=== PATIENT | male | born 2005 | race Two or more races ===

== ENCOUNTER 2024-07-09 17:08 | Emergency (ER) | payer MEDICAID, SELFPAY ==
[2024-07-09 17:09] VITALS: BMI 32.5
[2024-07-09 17:28] VITALS: BP 157/92; PULSE 108; RESP 18; TEMP 37.1; O2SAT 99
--- NOTE | 2024-07-09 17:44 | XR_ITS ---
Examination: CT chest with intravenous contrast CT abdomen with intravenous contrast CT pelvis with intravenous contrast 2-D coronal and sagittal reconstructions Time of exam: July 09, 2024 at 1922 hrs. Indications: Abdominal pain chest pain nausea vomiting beginning 3 days ago CTDI: vol (mGy) : 10.8 DLP: (mGycm): 901 Technique: Multiple axial images of the chest, abdomen and pelvis with intravenous contrast, 3.0 mm slice thickness. Images obtained post intravenous injection Isovue 370 60 cc. 2-D sagittal and coronal reconstructions. Low dose protocols were performed. One or more of the following dose reduction techniques were used; automated exposure control, adjustment of the mA and/or KV according to patient size, use of iterative reconstruction technique. Findings: Normal thoracic aorta pulmonary arteries No paratracheal tracheobronchial or bronchopulmonary adenopathy No pneumonia or pulmonary edema or pleural disease No visualized liver or splenic lesion Contracted gallbladder No pancreatic or adrenal mass Mild bilateral hydronephrosis which may relate to the patient's distended urinary bladder No pericecal inflammatory change Normal appendix Fluid distended small bowel loops Small fat-containing hernia Minimal urinary bladder wall thickening No prostatomegaly Impression: No pneumonia or pulmonary edema or pleural disease Small bowel mildly fluid distended loops, consider enteritis including gastroenteritis, ileus, clinical correlation advised Normal appendix No bowel obstruction Mild bilateral hydronephrosis which appears to be secondary to distended urinary bladder Minimal bladder wall thickening, consider cystitis
--- NOTE | 2024-07-09 17:45 | EDNOTE_ITS ---
ED Abdominal Pain RME/HPI General Chief Complaint: Abdominal Pain Stated complaint: Abdominal pain, NV x 1 day Time seen by provider: 07/09/24 17:15 Arrival date/time: 07/09/24 17:08 RME / HPI RME / HPI narrative: 18-year-old male patient with significant history of diabetes insipidus, hypothyroidism, was brought in by family for evaluation regarding nausea and vomiting. Patient has been having nausea and vomiting since yesterday, no nbloody, associated with lower abdominal pain. No fever was noted. Denies any ill contacts. Family is worried because other sibling in the past is having the same symptoms and turned out to have appendicitis. Related Data Allergies Allergy/AdvReac Type Severity Reaction Status Date / Time No Known Allergies Allergy Verified 07/09/24 20:47 Review of Systems Review of Systems Narrative Review of Systems: Review of system reviewed and within normal limits except mentioned in HPI ED Exam Narrative Physical exam: VITAL SIGNS: Reviewed. GENERAL APPEARANCE: Alert and interactive, follows commands, no acute distress, HEAD AND FACE: Non-traumatic. ENT: PERRL, pink conjunctivitis, eyelid no trauma, Mucous membrane moist. NECK: Supple, nontender, no nuchal rigidity. CHEST: No tenderness, no crepitus, no paradoxical movement, no retractions. LUNGS: Clear, well ventilated, symmetric, no rales, no wheezing, no ronchi, no stridor, good breath sounds bilaterally. HEART: Regular rate, regular rhythm, no murmur, no gallops. ABDOMEN: Soft, positive bowel sounds, nondistended, no guarding, lower abdominal tenderness, no rebound, no masses, RECTAL: Deferred. GENITAL: Deferred. NEUROLOGICAL: Gross motor function intact sensory function intact, Appropriate for age. MUSCULOSKELETAL: low back nontender, full range of motion. EXTREMITIES: Nontender, full range of motion. SKIN: Color pink, dry, no rash, no lacerations, no abrasions, no contusions. LYMPHATICS: Deferred. Course Quality Measures none Orders Category Date Time Status CT Screening NOW Care 07/09/24 17:[address] chest abdomen pelvis w Stat Exams 07/09/24 17:44 Completed CBC Stat Lab 07/09/24 18:04 Completed Comprehensive Metabolic Panel Stat Lab 07/09/24 18:04 Completed Lipase Stat Lab 07/09/24 18:04 Completed Prothrombin Time with INR Stat Lab 07/09/24 18:22 Completed UA, C/S IF [Urinalysis, C/S if Indicated] Stat Lab 07/09/24 19:11 Completed Sodium Chloride 0.9% 1000 ml [Ns] 1,000 ml Med 07/09/24 17:44 Discontinued IV 999 mls/hr Vital Signs Vital signs: Vital Signs Temperature 98.7 F 07/09/24 17:28 Pulse Rate 108 H 07/09/24 17:28 Respiratory Rate 18 07/09/24 17:28 Blood Pressure 157/92 H 07/09/24 17:28 Pulse Oximetry (%) 99 07/09/24 17:28 Oxygen Delivery Method Room Air 07/09/24 17:28 Abdominal Pain [facility] Narrative [facility] Narrative:: 18-year-old male patient with significant history of diabetes insipidus, hypothyroidism, was brought in by family for evaluation regarding nausea and vomiting. Patient has been having nausea and vomiting since yesterday, nonbloody, associated with lower abdominal pain. No fever was noted. Denies any ill contacts. Family is worried because other sibling in the past is having the same symptoms and turned out to have appendicitis. Patient's workup today all came back unremarkable no leukocytosis noted. Except for chloride of 113. AST of 106, ALT of 180, and alkaline phos of 196. Urinalysis no UTI. CT scan of the abdomen and pelvis showed No pneumonia or pulmonary edema or pleural disease Small bowel mildly fluid distended loops, consider enteritis including gastroenteritis, ileus, clinical correlation advised Normal appendix No bowel obstruction Mild bilateral hydronephrosis which appears to be secondary to distended urinary bladder Minimal bladder wall thickening, consider cystitis Results discussed with the patient. And family No vomiting or diarrhea noted in the emergency room. Patient received IV fluids Patient data External records reviewed:: None Clinical information provided by:: patient and family Social determinants that could affect healthcare access:: none Patient has the following chronic illnesses:: Diabetes insipidus, hypothyroidism,, hypogonadism How is presenting disease/condition affected by chronic disease/condition?: exacerbated by Evaluation data The following diagnostics were reviewed and interpreted by me:: lab results and radiology exam(s) Lab and/or radiology exams considered but not ordered:: None Interpretation Summary: See results in MDM Medications / Prescriptions Medications or Prescriptions considered but not ordered:: None Medication administrations:: Medication Administration History Discontinued Medications Sodium Chloride (Ns) 1,000 mls @ 999 mls/hr IV .Q1H1M ONE Stop: 07/09/24 18:44 Last Infusion: 07/09/24 19:24 Dose: Infused Documented By: Admin: 07/09/24 18:27 Dose: 999 mls/hr Documented By: KUSH IV fluid for hydration Consultations Consultation(s) initiated? (list below): No Diagnosis Differential diagnosis abdominal pain: abdominal pain, acute appendicitis and other (Gastroenteritis) Most likely diagnosis given after review of the tests above:: Gastroenteritis Admission Indicated Admission indicated?: not indicated Explain why admission is indicated or not indicated:: Stable Admission Request Was there a request for admission?: No Disposition Plan Disposition Plan: Discharge Discharge Attestation Discharge Attestation: The patient and all family members were given an opportunity to ask questions and understood the discharge instructions. Discharge instructions specifically effects, indications for sooner follow up or return to the emergency department, and the expected course of current diagnosis. Patient condition: Stable Discharge Plan Plan Patient Disposition: HOME (Self Care) Disposition Comment: Stable Prescriptions/Referrals Referrals: No Primary/Family,Physician [Primary Care Provider] - In 1 week Problem List Clinical Impression: Gastroenteritis Patient/Caregiver Discharge Instructions Discharge Activity: activity as tolerated Education Materials: How the Colon Works Additional Instructions: Thank you for the opportunity for serving you today. You are stable for discharged . You are advised to: Follow-up with your PCP in 1 to 2 days Return to ED for worsening of symptoms Increase oral fluids Print Language: Yakut Stand Alone Forms: Fiona Award Info., Patient Portal Info Letter JARRETT/HERMAN Supervising Physician JOSE Supervising Physician: MD Misty
[2024-07-09] MEDS: SODIUM CHLORIDE 0.9% 1000 ML 1,000 ML 999 ML IV (18:27)
[2024-07-09 18:50] LABS: Basophils % (Auto) 0 % (0-2.5); Eosinophils # (Auto) 0.1 Thou/mm3 (0.0-0.5); Eosinophils % (Auto) 2 % (0-10); Hematocrit 42.7 % (41.0-53.0); Hemoglobin 15.3 g/dL (13.5-16.0); Immature Granulocytes % (Auto) 0 % (0-0); Immature Granulocytes Auto 0.01 Thou/mm3 (0.00-0.00); Lymphocytes # (Auto) 1.6 Thou/mm3 (1.0-5.0); Lymphocytes % (Auto) 27 % (10-50); Mean Corpuscular HGB Conc 35.8 g/dl (31.0-37.0); Mean Corpuscular Hemoglobin 27.5 pg (25.0-35.0); Mean Corpuscular Volume 77 fL (80-100); Monocytes # (Auto) 0.4 Thou/mm3 (0.0-0.8); Monocytes % (Auto) 7 % (0-12); Neutrophils # (Auto) 3.7 Thou/mm3 (1.8-7.7); Neutrophils % (Auto) 64 % (37-80); Nucleated Red Blood Cell % 0 /100 WBC (0); Platelet Count 101 Thou/mm3 (140-440); RDW Standard Deviation 38.5 fL (35.1-43.9); Red Blood Count 5.56 Miln/mm3 (4.50-5.90); White Blood Count 5.8 Thou/mm3 (4.5-11.0)
[2024-07-09 18:54] LABS: Alanine Aminotransferase 180 U/L (10-49); Albumin, Serum 4.8 gm/dL (3.5-5.0); Albumin/Globulin Ratio 1.8 (1.2-2.2); Alkaline Phosphatase 196 U/L (46-116); Anion Gap 10 (7-16); Aspartate Amino Transferase 106 U/L (0-34); BUN/Creatinine Ratio 14 Ratio (12-20); Bilirubin,Total 0.3 mg/dL (0.3-1.2); Blood Urea Nitrogen 10 mg/dL (9-23); Calcium 9.9 mg/dL (8.3-10.6); Calcium (Corrected) 9.9 mg/dL (8.5-10.1); Carbon Dioxide 21.8 mMol/L (20.0-31.0); Chloride 113 mMol/L (98-107); Creatinine (Component) 0.7 mg/dL (0.6-1.3); Estimated Creatinine Clearance 216.3 mL/min (>60); Globulin 2.6 gm/dL (2.3-3.5); Glucose 106 mg/dL (74-106); Lipase 38 U/L (12-53); Osmolality,Calculated 287 (275-295); Sodium 145 mMol/L (136-145); Total Protein 7.4 gm/dL (5.7-8.2); eGFR > 60 See Note
[2024-07-09 18:56] LABS: INR 1.1 (0.9-1.3); Prothrombin Time 12.2 Seconds (9.0-12.2)
[2024-07-09 19:33] LABS: Collection Type, Urine Clean Catch; Squamous Epithelial Cell,Urine 0 /hpf (0-5)
[2024-07-09 19:49] LABS: Bilirubin,Urine Negative (Negative); Blood,Urine Negative (Negative); Clarity,Urine Clear (Clear/Hazy); Color,Urine Colorless (Lt Yel-Yel); Culture Indicated,Urine Not Indicated; Glucose, Urine Negative (Negative); Ketones,Urine Negative (Negative); Leukocyte Esterase,Urine Negative (Negative); Nitrite,Urine Negative (Negative); Protein,Urine Negative (Neg - Trace); RBC,Urine 1 /hpf (0-3); Specific Gravity,Urine 1.004 (1.001-1.035); Urobilinogen,Urine Negative mg/dL (0.0-1.0); WBC,Urine 2 /hpf (0-5)
== END 2024-07-09 21:11 | disposition home or self-care (01) ==
PROVIDERS: Nurse Practitioner Family; Emergency Provider Emergency Medicine
DX: K52.9 Noninfective gastroenteritis and colitis, unspecified (principal); N13.30 Unspecified hydronephrosis; N32.89 Other specified disorders of bladder; K63.89 Other specified diseases of intestine
CPT/HCPCS: 36415; 71260; 74177; 80053; 81001; 83690; 85025; 85610; 96360; 99285; A4649; J7030; Q9967

== ENCOUNTER → 2024-08-05 | Outpatient (CLI) | payer OTHER, MEDICAID, SELFPAY ==
--- NOTE | 2024-08-05 10:40 | XR_ITS ---
Examination: Bone age TECHNIQUE: Bilateral AP hands wrist single view Exam date and time: August 05 2024 11:11 AM Comparison 02/01/2023 INDICATIONS: Diagnosis hypopituitarism FINDINGS: Chronologic age 18 years Bone age 15 years according to the radiographic appearance of skeletal development hand and wrist IMPRESSION: Chronologic age 18 years Bone age 15 years
== END | disposition home or self-care (01) ==
PROVIDERS: PCP Pediatrics; Referring Provider Pediatrics; Visit Provider Pediatrics
DX: E23.0 Hypopituitarism (principal); Z51.81 Encounter for therapeutic drug level monitoring; Z79.899 Other long term (current) drug therapy
CPT/HCPCS: 77072